=== PATIENT | male | born 1995 | race Caucasian/White ===

== ENCOUNTER → 2017-04-23 | Outpatient (CLI) | payer BC | LOC: FIMAGING 08:28 | DX: R10.9 Unspecified abdominal pain (principal) | CPT/HCPCS: 78264; A9541 ==

== ENCOUNTER 2017-05-08 19:49 | Observation (INO) | payer BC ==
--- NOTE | 2017-05-08 20:09 | EDPHY ---
H & P Time Seen by Provider: 05/08/17 19:59 HPI/ROS: CHIEF COMPLAINT: Vomiting, nausea HISTORY OF PRESENT ILLNESS: Patient is a 22-year-old male who presents emergency department not feeling well. Patient states that he was recently diagnosed with Sjogren's syndrome. He has been on Plaquenil for the past 3 weeks. He takes 200 mg twice daily. On he saw his physician and was increased to 400 mg twice daily. He has been on increased dosing for the past 2 days. Patient states that he has mild abdominal cramping. He has had numerous episodes of nonbloody nausea and vomiting. No diarrhea. No fever. Mild chills. No chest pain or shortness of breath. No dysuria frequency. Patient denies recent travel. No other new medications. REVIEW OF SYSTEMS: My complete review of systems is negative except as mentioned in the HPI. Past Medical/Surgical History: Includes Sjogren's syndrome, IBS Past surgical history: Tonsillectomy Social history: Patient does not smoke. Smoking Status: Never smoked Physical Exam: 36.5, 146/94, 125, 18, 98% on room air GENERAL: No acute distress, alert. HEENT: Eyes normal to inspection, normal pharynx, mildly dry mucous membranes. NECK: No thyromegaly, no lymphadenopathy, supple. RESPIRATORY: Clear to auscultation bilaterally, no rales, rhonchi or wheezing. CVS: Regular rate and rhythm, no rubs, murmurs, or gallops. ABDOMEN: Soft, nontender, nondistended, no organomegaly. BACK: Normal to inspection, no CVA tenderness. SKIN: Normal color, no rash, warm, dry. No pallor. EXTREMITIES: No pedal edema, no calf tenderness, no Homans sign or cords, no joint swelling. NEURO/PSYCH: Alert and oriented x3, normal mood and affect, normal motor sensory exam. No obvious cranial nerve deficit. Constitutional: Initial Vital Signs Temperature (C) 36.5 C 05/08/17 19:51 Heart Rate 125 H 05/08/17 19:51 Respiratory Rate 18 05/08/17 19:51 Blood Pressure 146/94 H 05/08/17 19:51 O2 Sat (%) 98 05/08/17 19:51 O2 Delivery Mode Room Air Allergies/Adverse Reactions: No Known Allergies Allergy (Unverified 05/08/17 19:56) Home Medications: Medication Instructions Recorded Hyoscyamine Sulfate 05/08/17 Ondansetron Odt [Zofran Odt 4 mg 4 mg PO Q4PRN PRN #7 tab 05/08/17 (*)] Plaquenil 200 mg (*) 05/08/17 Medical Decision Making ED Course/Re-evaluation: In the emergency department I discussed possible etiologies with the patient. I answered all of his questions. An IV was placed. Patient was given 2 L of normal saline for hydration. He is given Zofran 4 mg IV. He is given Toradol 30 mg IV for discomfort. The patient's mother requested a flu swab. I discussed this with the patient. The order was placed. Patient's CBC showed a mildly elevated white count. Mildly elevated hematocrit of 51. Chemistry panel is unremarkable. LFTs are normal. Lipase is normal. 2100: I rechecked the patient. He is feeling much better. Abdomen is soft, nontender nondistended. I discussed his laboratory results. I answered all her questions. Patient's mother spoke with his major gifts director Dr. Chávez. He states that he feels his symptoms are secondary to the Plaquenil. Often times patient's have a reaction to this medication per her conversation with him. Influenza negative Patient's vital signs improved. I discussed possible etiologies with the patient and this included Plaquenil. I also discussed other causes. I gave him warnings prior to leaving and reasons for return. He will return if he is worse. He was given a prescription of Zofran and take-home pack it of Zofran. Prior to discharge patient's heart rate bumped to 114. He had no new complaints. His abdominal exam was benign. Because of this the patient was given Normal saline. On recheck the patient's heart rate was 122. His temperature was 100 degrees. He was given acetaminophen 1 g orally. Patient was feeling nauseated. He is given Phenergan 12.5 mg IV. I discussed the case with Dr. Good from the hospitalist service. The patient will be admitted for further observation. Differential Diagnosis: My differential includes but is not limited to IBS, medication reaction, gastritis, viral illness, pancreatitis, cholecystitis, bowel obstruction - Data Points Laboratory Results: Laboratory Results 05/08/17 20:05 05/08/17 20:05 05/08/17 05/08/17 05/08/17 20:05 20:05 20:05 WBC RBC Hgb Hct MCV MCH MCHC RDW Plt Count MPV Neut % (Auto) Lymph % (Auto) Clark % (Auto) Eos % (Auto) Baso % (Auto) Nucleat RBC Rel Count Absolute Neuts (auto) Absolute Lymphs (auto) Absolute Monos (auto) Absolute Eos (auto) Absolute Basos (auto) Absolute Nucleated RBC Immature Gran % Immature Gran # PT 13.3 SEC SEC (12.0-15.0) INR 1.02 (0.83-1.16) APTT 25.7 SEC SEC (23.0-38.0) Sodium 144 mEq/L mEq/L (134-144) Potassium 3.9 mEq/L mEq/L (3.5-5.2) Chloride 102 mEq/L mEq/L (97-110) Carbon Dioxide 25 mEq/l mEq/l (22-31) Anion Gap 17 mEq/L H mEq/L (8-16) BUN 16 mg/dL mg/dL (7-23) Creatinine 1.1 mg/dL mg/dL (0.7-1.3) Estimated GFR > 60 Glucose 103 mg/dL H mg/dL (70-100) Calcium 10.2 mg/dL mg/dL (8.5-10.4) Total Bilirubin 1.2 mg/dL mg/dL (0.1-1.4) Conjugated Bilirubin 0.1 mg/dL mg/dL (0.0-0.5) Unconjugated Bilirubin 1.1 mg/dL mg/dL (0.0-1.1) AST 25 IU/L IU/L (17-59) ALT 40 IU/L IU/L (21-72) Alkaline Phosphatase 67 IU/L IU/L (38-126) Total Protein 7.8 g/dL g/dL (6.3-8.2) Albumin 5.4 g/dL H g/dL (3.5-5.0) Lipase 58 IU/L IU/L (23-300) Nasal Influenza A PCR NEGATIVE FOR FLU A (NEGATIVE) Nasal Influenza B PCR NEGATIVE FOR FLU B (NEGATIVE) 05/08/17 20:05 WBC 10.53 10^3/uL H 10^3/uL (3.80-9.50) RBC 5.98 10^6/uL 10^6/uL (4.40-6.38) Hgb 18.6 g/dL H g/dL (13.7-17.5) Hct 51.5 % H % (40.0-51.0) MCV 86.1 fL fL (81.5-99.8) MCH 31.1 pg pg (27.9-34.1) MCHC 36.1 g/dL g/dL (32.4-36.7) RDW 12.7 % % (11.5-15.2) Plt Count 180 10^3/uL 10^3/uL (150-400) MPV 10.2 fL fL (8.7-11.7) Neut % (Auto) 89.1 % H % (39.3-74.2) Lymph % (Auto) 4.7 % L % (15.0-45.0) Clark % (Auto) 4.7 % % (4.5-13.0) Eos % (Auto) 0.6 % % (0.6-7.6) Baso % (Auto) 0.4 % % (0.3-1.7) Nucleat RBC Rel Count 0.0 % % (0.0-0.2) Absolute Neuts (auto) 9.39 10^3/uL H 10^3/uL (1.70-6.50) Absolute Lymphs (auto) 0.49 10^3/uL L 10^3/uL (1.00-3.00) Absolute Monos (auto) 0.50 10^3/uL 10^3/uL (0.30-0.80) Absolute Eos (auto) 0.06 10^3/uL 10^3/uL (0.03-0.40) Absolute Basos (auto) 0.04 10^3/uL 10^3/uL (0.02-0.10) Absolute Nucleated RBC 0.00 10^3/uL 10^3/uL (0-0.01) Immature Gran % 0.5 % % (0.0-1.1) Immature Gran # 0.05 10^3/uL 10^3/uL (0.00-0.10) PT INR APTT Sodium Potassium Chloride Carbon Dioxide Anion Gap BUN Creatinine Estimated GFR Glucose Calcium Total Bilirubin Conjugated Bilirubin Unconjugated Bilirubin AST ALT Alkaline Phosphatase Total Protein Albumin Lipase Nasal Influenza A PCR Nasal Influenza B PCR Medications Given: Discontinued Medications Acetaminophen (Tylenol) 1,000 mg PO EDNOW ONE Stop: 05/08/17 22:01 Last Admin: 05/08/17 22:06 Dose: 1,000 mg Famotidine (Pepcid) 20 mg IVP EDNOW ONE Stop: 05/08/17 20:12 Last Admin: 05/08/17 20:16 Dose: 20 mg Sodium Chloride (Ns) 1,000 mls @ 0 mls/hr IV EDNOW ONE; Wide Open PRN Reason: Protocol Stop: 05/08/17 20:11 Last Admin: 05/08/17 20:16 Dose: 1,000 mls Sodium Chloride (Ns) 1,000 mls @ 0 mls/hr IV ONCE ONE PRN Reason: Wide Open Stop: 05/08/17 20:46 Last Admin: 05/08/17 20:47 Dose: 1,000 mls Sodium Chloride (Ns) 1,000 mls @ 0 mls/hr IV EDNOW ONE; Wide Open PRN Reason: Protocol Stop: 05/08/17 21:28 Last Admin: 05/08/17 21:30 Dose: 1,000 mls Ketorolac Tromethamine (Toradol) 30 mg IVP EDNOW ONE Stop: 05/08/17 20:11 Last Admin: 05/08/17 20:16 Dose: 30 mg Ondansetron HCl (Zofran) 4 mg IVP EDNOW ONE Stop: 05/08/17 20:11 Last Admin: 05/08/17 20:16 Dose: 4 mg Ondansetron HCl (Zofran Odt 4 Mg Prepack#2) 1 btl TAKEHOME EDNOW ONE Stop: 05/08/17 21:08 Last Admin: 05/08/17 21:31 Dose: 1 btl Promethazine HCl (Phenergan) 12.5 mg IVP ONCE ONE Stop: 05/08/17 22:09 Last Admin: 05/08/17 22:11 Dose: 12.5 mg Departure - Departure Disposition: [facility] Acute Clinical Impression: Vomiting Qualifiers: Vomiting type: unspecified Vomiting Intractability: non-intractable Nausea presence: with nausea Qualified Code(s): R11.2 - Nausea with vomiting, unspecified Condition: Good
[2017-05-08] MEDS ORDERED: ONDANSETRON 4 MG/2 ML VIAL IVP ONE (20:10)
[2017-05-08] MEDS ORDERED: NS 1,000 ML IV ONE ×3 (20:10→21:27)
[2017-05-08] MEDS ORDERED: KETOROLAC 30 MG/1 ML SDV IVP ONE (20:10)
[2017-05-08] MEDS ORDERED: FAMOTIDINE 20 MG/2 ML SDV IVP ONE (20:11)
[2017-05-08 20:17] LABS: % IMMATURE GRANULYOCYTES 0.5 % (0.0-1.1); ABSOLUTE IMMATURE GRANULOCYTES 0.05 10^3/uL (0.00-0.10); ADD DIFF? NO; ADD MORPH? NO; ADD SCAN? NO; ATYPICAL LYMPHOCYTE FLAG 0 (0-99); FRAGMENT RBC FLAG 0 (0-99); HEMATOCRIT 51.5 % (40.0-51.0); HEMOGLOBIN 18.6 g/dL (13.7-17.5); LEFT SHIFT FLG 0 (0-99); LIPEMIA HEMOLYSIS FLAG 90 (0-99); MEAN CELL HEMOGLOBIN 31.1 pg (27.9-34.1); MEAN CELL HEMOGLOBIN CONCENTR. 36.1 g/dL (32.4-36.7); MEAN CELL VOLUME 86.1 fL (81.5-99.8); MEAN PLATELET VOLUME 10.2 fL (8.7-11.7); PLATELET CLUMPS FLAG 10 (0-99); PLATELET COUNT 180 10^3/uL (150-400); RED BLOOD CELL COUNT 5.98 10^6/uL (4.40-6.38); RED CELL DISTRIBUTION WIDTH 12.7 % (11.5-15.2)
[2017-05-08 20:26] LABS: APTT 25.7 SEC (23.0-38.0); INR 1.02 (0.83-1.16); PROTIME(PATIENT) 13.3 SEC (12.0-15.0)
[2017-05-08 20:37] LABS: ALANINE AMINOTRANSFERASE 40 IU/L (21-72); ALBUMIN 5.4 g/dL (3.5-5.0); ALKALINE PHOSPHATASE 67 IU/L (38-126); ANION GAP 17 mEq/L (8-16); ASPARTATE AMINOTRANSFERASE 25 IU/L (17-59); BILIRUBIN,TOTAL 1.2 mg/dL (0.1-1.4); BILIRUBIN-CONJUGATED 0.1 mg/dL (0.0-0.5); BILIRUBIN-UNCONJUGATED 1.1 mg/dL (0.0-1.1); CALCIUM 10.2 mg/dL (8.5-10.4); CARBON DIOXIDE 25 mEq/l (22-31); CHLORIDE 102 mEq/L (97-110); CREATININE 1.1 mg/dL (0.7-1.3); GLOMERULAR FILTRATION RATE > 60; GLUCOSE 103 mg/dL (70-100); POTASSIUM 3.9 mEq/L (3.5-5.2); SODIUM 144 mEq/L (134-144); TOTAL PROTEIN 7.8 g/dL (6.3-8.2)
[2017-05-08] MEDS ORDERED: ONDANSETRON 4MG PREPACK#2 BTL TAKEHOME ONE (21:07)
[2017-05-08] MEDS ORDERED: ACETAMINOPHEN 500 MG TAB PO ONE (22:00)
[2017-05-08] MEDS ORDERED: PROMETHAZINE HCL 25 MG/ML INJ IVP ONE (22:08)
[2017-05-08] MEDS ORDERED: HYDROCODONE/APAP 5/325 TAB PO PRN (22:37)
[2017-05-08] MEDS ORDERED: PROMETHAZINE HCL 25 MG/ML INJ IVP PRN (22:37)
[2017-05-08] MEDS: NS 1,000 ML IV SCH (23:33)
[2017-05-08] MEDS: ONDANSETRON 4 MG/2 ML VIAL IVP PRN (23:33)
--- NOTE | 2017-05-09 00:09 | GHP ---
[f rep st] HISTORY AND PHYSICAL DATE OF ADMISSION: 05/08/2017 SOURCE: The patient provides history, appears reliable. His parents are at bedside and supplement history. CHIEF COMPLAINT: Nausea, vomiting, abdominal pain. HISTORY OF PRESENT ILLNESS: This is a very pleasant 22-year-old gentleman with a past medical history significant for irritable bowel syndrome and recently diagnosed Sjogren, started on Plaquenil, presents to the emergency department today with complaints of nausea and vomiting that started at approximately 2:00 p.m. The patient reports that he was otherwise feeling fairly well. He has no known sick contacts. He had an appetite until about 2:00 p.m., and then developed nausea, vomiting, and dry heaving. The patient has not been able to keep anything down. He denies any hematemesis. He did have an episode of diarrhea that was nonbloody. The patient states that his abdominal cramping was more severe than his normal irritable bowel symptoms. Cramping pain to the mid and lower abdomen diffusely. The patient recently had a dosing change in his Plaquenil from 200 twice daily to 400 twice daily. The patient's fibreglass laminator, Dr. Chávez was called and felt that his symptoms could be attributed to the dosage increase. He recommended withholding the medication at this time. During the patient's emergency department stay, he developed a fever of 100 with an increase in the patient's heart rate into the 120s. The patient reports some intermittent palpitations throughout the day, but no chest pain or shortness of breath. The patient denies any rhinorrhea, cough, sore throat, rashes, dysuria, or hematuria. He has had one episode of nonbloody diarrhea, as above. REVIEW OF SYSTEMS: GENERAL: Fevers in the emergency department. No chills. Overall, the patient has been having increased fatigue and dry mouth type symptoms for the past year. SKIN: The patient denies any rashes or sores. ENT : The patient reporting dry mouth. No sore throat. No rhinorrhea. EYES: The patient denies any acute changes in vision or ocular pain. CV: The patient reports intermittent palpitations. No chest pain. RESPIRATORY: The patient denies any shortness of breath or cough. GI: Symptoms as noted per HPI. : The patient denies any dysuria or hematuria. MUSCULOSKELETAL: The patient reports some diffuse myalgias that have since resolved. No joint pain. NEURO: The patient reports intermittent headache just today. Denies any numbness or tingling. PSYCH: The patient denies anxiety or depression. Remainder ROS negative except as noted below ALLERGIES: No known drug allergies. HOME MEDICATIONS: Plaquenil with recent increase from 200 twice daily to 400 mg p.o. twice daily, hyoscyamine, Zofran, vitamin D, FC-Cidal and Dysbiocide. PAST MEDICAL HISTORY: Significant for irritable bowel syndrome with intermittent abdominal cramping. The patient denies any predominance of diarrhea or constipation. Recently diagnosed Sjogren syndrome. PAST SURGICAL HISTORY: Significant for tonsillectomy, wisdom tooth removal, EGD and colonoscopy. FAMILY HISTORY: Significant for sarcoidosis in father. A paternal cousin with diabetes type 1. SOCIAL HISTORY: The patient denies any tobacco, drugs, or alcohol use. CODE STATUS: Full. PHYSICAL EXAMINATION: VITAL SIGNS: Upon arrival to the emergency department today, blood pressure 146/94, heart rate 125, respiratory rate 18, O2 saturation 98% in room air with a temperature 36.5. Vitals currently available : Blood pressure 130/73, heart rate is 120, respiratory rate 16, O2 saturation 97% on room air with a temperature 37.8. GENERAL: In no acute distress, pleasant young adult male who is lying quietly in bed. He does appear fatigued , acutely ill, but nontoxic. HEAD: Normocephalic, atraumatic. EYES: Extraocular muscles are intact. Pupils equal, round, reactive to light bilaterally and symmetric. Slightly sluggish to light. No scleral icterus or conjunctival injection. ENT: Mucous membranes appear moist. No oropharyngeal erythema or exudates. NECK: Supple. Trachea midline. CV: Tachycardic in the 120s, without any murmurs, rubs, or gallops appreciated. RESPIRATORY: Lungs clear to auscultation bilaterally. No wheezes, rales, or rhonchi appreciated. ABDOMEN: Positive bowel sounds, soft, nontender to palpation. No rebound, guarding, or masses appreciated. : No Victoria in place. No suprapubic tenderness to palpation. EXTREMITIES: No cyanosis, clubbing, or edema appreciated. MUSCULOSKELETAL: Patient able to sit up independently. Moves all extremities with grossly normal strength. NEURO: Cranial nerves grossly nonfocal. No facial drooping. Moves all extremities as above. PSYCH: Patient awake, alert, and oriented x4. Thought process, content and questions are all appropriate. He does appear a little fatigued, but cooperative. LABORATORY STUDIES: WBC is 10.53, H and H 18.6 and 51.5, MCV of 86.1, platelet count is 180, neutrophil percent is 89.1%. PT is 13.3, INR 1.02, PTT is 25.7. Sodium 144, potassium 3.9, chloride 102, CO2 of 25, anion gap 17, BUN 16, creatinine 1.1, GFR greater than 60, glucose 103, calcium 10.2. Total bilirubin 1.2, conjugated 0.1, unconjugated 1.1, ALT is 40, AST 25, alkaline phosphatase 67, total protein 7.8, albumin is 5.4, lipase 58. Flu A and B are both negative. ASSESSMENT AND PLAN: A pleasant 22-year-old gentleman with a history of irritable bowel syndrome, recently diagnosed Sjogren's, now presents with symptoms of nausea, vomiting, and fever. 1. Nausea and vomiting likely related to patient's Plaquenil versus viral syndrome. The patient did develop a fever, which could still be related to his Plaquenil. Discussed with the parents. Will continue with IV fluid hydration. He is status post 3 L in the emergency department. Heart rate remains in the 120s. At this time, after 3 L, the patient reports that he may now feel like he has to void, which he was not able to do previously. The patient's symptoms have been improved. He received two doses of Zofran and an additional dose of Phenergan, and now feeling a little sleepy, but reports that his nausea and vomiting are finally subsiding. Will encourage sips and advancement in diet as tolerated. 2. Tachycardia likely related to dehydration and recent fever. Will monitor the patient overnight on telemetry and continue with IV fluid hydration. The patient denies any chest pain and no additional risk factors for cardiovascular disease. 3. Sjogren. As above, holding Plaquenil. 4. Irritable bowel syndrome. The patient may resume his home medications and supplements once he is discharged and diet is advanced and tolerated. 5. Anion gap, mildly increased, likely related to the patient's current dehydration status. IV fluids, as above, and will plan to repeat in the morning a BMP. 6. Polycythemia likely related to some dehydration, but will repeat a CBC in the morning to verify. 7. Fluid, electrolyte, nutrition. Status post 3 L in the emergency department. Continue 150 mL of normal saline unless the patient is able to tolerate large volume p.o. hydration and improved frequency of voiding. Electrolyte replacement if needed in the morning. Nutrition: Diet regular, advance as tolerated. 8. Prophylaxis. SCDs. Holding anticoagulation as patient with low risk, but will place on SCDs when in bed. 9. Code status is full. DISPOSITION: The patient is admitted to observation on the medical floor at this time. Anticipate discharge in the morning once the patient is hydrated and his heart rate has decreased. Plan discussed with patient and family in detail, and they are agreeable to the plan. /[id number]/MODL MTDD
[2017-05-09] MEDS ORDERED: LORazepam 2 MG/ML INJ IVP PRN (00:10)
[2017-05-09] MEDS: ACETAMINOPHEN 325 MG TAB PO PRN ×2 (04:16→15:07)
[2017-05-09 05:09] LABS: % IMMATURE GRANULYOCYTES 0.4 % (0.0-1.1); ABSOLUTE IMMATURE GRANULOCYTES 0.02 10^3/uL (0.00-0.10); ADD DIFF? NO; ADD MORPH? NO; ADD SCAN? NO; ATYPICAL LYMPHOCYTE FLAG 0 (0-99); FRAGMENT RBC FLAG 0 (0-99); HEMATOCRIT 43.1 % (40.0-51.0); HEMOGLOBIN 15.2 g/dL (13.7-17.5); LEFT SHIFT FLG 0 (0-99); LIPEMIA HEMOLYSIS FLAG 90 (0-99); MEAN CELL HEMOGLOBIN 30.6 pg (27.9-34.1); MEAN CELL HEMOGLOBIN CONCENTR. 35.3 g/dL (32.4-36.7); MEAN CELL VOLUME 86.9 fL (81.5-99.8); MEAN PLATELET VOLUME 10.5 fL (8.7-11.7); PLATELET CLUMPS FLAG 0 (0-99); PLATELET COUNT 141 10^3/uL (150-400); RED BLOOD CELL COUNT 4.96 10^6/uL (4.40-6.38); RED CELL DISTRIBUTION WIDTH 12.7 % (11.5-15.2)
[2017-05-09 05:21] LABS: ANION GAP 12 mEq/L (8-16); CALCIUM 8.3 mg/dL (8.5-10.4); CARBON DIOXIDE 22 mEq/l (22-31); CHLORIDE 109 mEq/L (97-110); GLOMERULAR FILTRATION RATE > 60; GLUCOSE 98 mg/dL (70-100); SODIUM 143 mEq/L (134-144)
--- NOTE | 2017-05-09 09:08 | ASMTCMCOM ---
CM Note CM Note Notes: Chart reviewed admitted with abdominal pain. No needs identified at present. CM available should needs arise. Date Signed: 05/09/2017 09:07 AM Electronically Signed By:Zofia Schroeder RN
[2017-05-09] MEDS: NS 1,000 ML IV SCH (11:44)
[2017-05-09] MEDS ORDERED: HYOSCYAMINE SULFATE 0.125 MG TAB SL PRN (14:00)
--- NOTE | 2017-05-09 14:08 | HOSPPROG ---
Hospitalist Progress Note Assessment/Plan: 22 yo M with PMH of IBS, Sjogren's pw N/V # n/v: likely related to either increase in plaquenil versus viral gastroenteritis. Much improved however still having some nausea. Will monitor, if able to eat and sxs resolved will likely dc later today versus tomorrow. Abd exam benign, LFTs wnl. # Sjogren's: recently started on increased dose of plaquenil but possibly led to above, rheum doctor stating we should hold for now # tachycardia/fever: low grade temperature which could be more indicative of viral etiology, tachycardia improved though HR still slightly elevated, continue IVF for now # polycythemia/leukocytosis: resolved s/p IVF, suspect hemoconcentrated on arrival # IBS: continue home mgmt, had one loose stool but nothing more significant # observation status, suspect he will either be able to dc later today or in am Patient new to my care. Old records reviewed/summarized as above. Care plan reviewed with patients mom present at bedside. Subjective: no significant overnight events, patient notes feeling slightly better Objective: Vital Signs Temp Pulse Resp BP Pulse Ox 37.2 C 100 20 103/67 94 05/09/17 11:29 05/09/17 11:29 05/09/17 11:29 05/09/17 11:29 05/09/17 11:29 Laboratory Results 05/09/17 04:33 05/09/17 04:33 05/08/17 05/09/17 05/10/17 05:59 05:59 05:59 Intake Total 3100 Output Total 100 Balance 3000 PT 13.3 SEC (12.0-15.0) 05/08/17 20:05 INR 1.02 (0.83-1.16) 05/08/17 20:05 awake alert anicteric op clear rrr tachycardia cta b soft nt nd no cce warm dry well perfused oriented appropriate ICD10 Worksheet Patient Problems: Problems Problem Status Onset Vomiting Acute
[2017-05-09] MEDS ORDERED: CALCIUM CARBONATE 500 MG CHEWABLE TAB PO PRN (14:19)
[2017-05-09] MEDS: ONDANSETRON 4 MG/2 ML VIAL IVP PRN (14:27)
[2017-05-09] MEDS: MAG HYDROX/AL HYDROX/SIMETH 30 ML UDCUP PO PRN ×2 (14:40→20:15)
[2017-05-09] MEDS ORDERED: NS 1,000 ML IV ONE (15:00)
[2017-05-09 19:29] VITALS: BP 120/69; PULSE 78; RESP 16; TEMP 98.7; O2SAT 94
--- NOTE | 2017-05-09 21:07 | PDDCSUM ---
Discharge Summary Discharge Summary: DISCHARGE SUMMARY FOLLOW-UP ITEMS: Follow-up symptom management with primary care provider DATE OF ADMISSION: 05/08/2017 DATE OF DISCHARGE: 05/09/2017 DISCHARGE DIAGNOSES: 1. Acute nausea and vomiting 2. Chronic Sjogren's Syndrome 3. Chronic irritable bowel syndrome CONSULTATIONS: None PROCEDURES / IMAGING: None CHIEF COMPLAINT: Acute nausea and vomiting SUBJECTIVE: Patient is feeling well at time discharge, he is able to tolerate oral solids and liquids, his symptoms are managed with as needed Zofran, he is having regular bowel movement PHYSICAL EXAM ON DISCHARGE: Abdomen is soft nontender nondistended, bowel sounds are present, no masses are palpated, heart rhythm is regular, mildly tachycardic, but this decreases with calming the patient, oriented x3, no pain, heart rate 78, afebrile overnight, satting well on room air, systolic blood pressure 120 LABS ON DISCHARGE: White blood cell count 4600, hemoglobin 15.2, platelets [id number], potassium 4, creatinine 1.0, serum sodium 143, flu PCR negative HOSPITAL COURSE BY PROBLEM: The patient presented with acute nausea and vomiting, leading to dehydration and hemoconcentration with mild leukocytosis and polycythemia, secondary to hypovolemia. The patient received empiric IV fluids, supportive care, and his symptoms resolved. Is unclear whether his nausea and vomiting are secondary to irritable bowel syndrome symptoms, or a mild Plaquenil side effect. The patient 's Plaquenil was continued, he received supportive care, and he is feeling comfortable being discharged with Zofran supportively at this time. The patient is requesting discharge at this hour. He was continued on his home dosage of Levsin for his irritable bowel syndrome. DISCHARGE MEDICATIONS: Please see official discharge medication reconciliation sheet in chart , continue home medications with the addition of Zofran 4 mg as needed. DISCHARGE INSTRUCTIONS: Please follow up with primary care provider this week, to reassess symptoms.
--- NOTE | 2017-05-10 16:37 | ASDISCHSUM ---
Discharge Information Plan Status:Home with No Needs Medically Cleared to Leave:05/08/2017 Discharge Date:05/09/2017 09:18 PM D/C Disposition: ADT D/C Disposition:Home, Routine, Self-Care Projected Discharge Date:05/09/2017 12:00 AM Transportation at D/C: Discharge Delay Reason: Follow-Up Date:05/09/2017 12:00 AM Discharge Slot: Final Diagnosis: Placement Information Patient Contact Information Contact Name:ANCA Relationship:Mother Address:[address] Work Phone: City:[place] Alternate Phone: State/Zip Code:[place] [address] Email: Financial Information Financial Class:HMO and PPO Plans Primary Plan Desc: OUT OF STATE PPO Primary Plan Number:[id number] Secondary Plan Desc: Secondary Plan Number: Assessment Information LACE LACE Length of stay for Answers: Less than 1 day current admission Acuity / Level of Care Answers: Was the patient admitted to hospital via the emergency department? Yes: Emergency dept visits in Answers: 0 last 6 months Score: 3 Date Signed: 05/09/2017 09:02 AM Electronically Signed By:Zofia Schroeder RN [facility] CM Progress Note CM Note CM Note Notes: Chart reviewed admitted with abdominal pain. No needs identified at present. CM available should needs arise. Date Signed: 05/09/2017 09:07 AM Electronically Signed By:Zofia Schroeder RN Intervention Information
== END 2017-05-09 21:18 | disposition home or self-care (01) ==
LOC: F3E 23:06
PROVIDERS: ADMIT Family Medicine; ATTEND Internal Medicine
DX: R11.2 Nausea with vomiting, unspecified (principal); E86.0 Dehydration; M35.00 Sjogren syndrome, unspecified; K58.9 Irritable bowel syndrome, unspecified
CPT/HCPCS: G0378 ×2; 96374; J1885; J2060; J2405; J2550

== ENCOUNTER 2017-05-10 14:18 | Emergency (ER) | payer BC ==
[2017-05-10 14:51] VITALS: RESP 16
--- NOTE | 2017-05-10 15:02 | EDPHY ---
H & P Stated Complaint: D/C'd from [facility] last night;thinks he's still dehydrated Time Seen by Provider: 05/10/17 15:01 Source: Patient - Personal History Current Tetanus Diphtheria and Acellular Pertussis (TDAP): Yes - Medical/Surgical History Hx Asthma: No Hx Chronic Respiratory Disease: No Hx Diabetes: No Hx Cardiac Disease: No Hx Renal Disease: No Hx Cirrhosis: No Hx Alcoholism: No Hx HIV/AIDS: No Hx Splenectomy or Spleen Trauma: No Other PMH: sjogrens, tonsillectomy - Social History Smoking Status: Never smoked Constitutional: Initial Vital Signs Temperature (C) 37.1 C 05/10/17 14:22 Heart Rate 108 H 05/10/17 14:22 Respiratory Rate 18 05/10/17 14:22 Blood Pressure 116/86 H 05/10/17 14:22 O2 Sat (%) 93 05/10/17 14:22 O2 Delivery Mode Room Air Allergies/Adverse Reactions: No Known Allergies Allergy (Verified 05/10/17 14:25) Home Medications: Medication Instructions Recorded Hydroxychloroquine Sulfate 200 mg PO BID 05/08/17 [Plaquenil 200 mg (*)] Hyoscyamine Sulfate [Levsin, 0.125 mg SL Q4-6PRN PRN 05/08/17 Hyomax-Sl 0.125 mg (*)] Acetaminophen [Tylenol 325mg (*)] 650 mg PO Q4HRS PRN tab 05/09/17 Herbals/Supplements -Info Only 1 ea PO DAILY 05/09/17 Ondansetron Odt [Zofran Odt 4 mg 4 mg PO Q4 PRN #40 tab 05/09/17 (*)] Immodium 05/10/17 Ondansetron Odt [Zofran Odt 4 mg 4 mg PO Q4 PRN #10 tab 05/10/17 (RX)] Medical Decision Making ED Course/Re-evaluation: CHIEF COMPLAINT: Nausea, diarrhea, abdominal discomfort. HISTORY OF PRESENT ILLNESS: The patient is a 22-year-old male presenting nausea , abdominal burning, and diarrhea. The patient was diagnosed with Sjogren last month. He increased his dose to Plaquenil on Wednesday (3 days ago) and after developed nausea and vomiting. He was hospitalized with severe dehydration and discharged home yesterday. This morning his symptoms of nausea, abdominal burning, and diarrhea returned. The patient states he does not feel well and believes he is dehydrated. He is able to keep down fluids and has not vomited today. REVIEW OF SYSTEMS: A 10 point review of systems was performed and is negative with the exception of the elements mentioned in the history of present illness. PHYSICAL EXAM: HR, BP, O2 Sat, RR. Temp noted General Appearance: Alert, well hydrated, appropriate, and non-toxic appearing. Eyes: Pupils equal, round, reactive to light and accommodation, EOMI, no trauma , no injection. Ears: Clear bilaterally, no perforation, normal landmarks Nose: Atraumatic, no rhinorrhea, clear. Throat: There is no erythema or exudates, no lesions, normal tonsils, mucus membranes moist. Neck: Supple, 2+ carotid upstroke, nontender, no lymphadenopathy. Respiratory: No retractions, no distress, no wheezes, and no accessory muscle use. Lungs are clear to auscultation bilaterally. Cardiovascular: Regular rate and rhythm, no murmurs, rubs, or gallops. Bilateral carotid, radial, dorsalis pedis, and posterior tibial pulses intact. Good capillary refill all extremities. Gastrointestinal: Abdomen is soft, nontender, non-distended, no masses, no rebound, no guarding, no peritoneal signs. Musculoskeletal: Normal active ROM of all extremities, atraumatic. Neurological: Alert, appropriate, and interactive. The patient has normal DTRs and non-focal cranial nerves, motor, sensory, and cerebellar exam. Skin: No rashes, good turgor, no nodules on palpation. Past medical history: Sjogren's syndrome. Past surgical history: Tonsillectomy. Family history: Noncontributory. Social history: Parents at bedside. DIFFERENTIAL DIAGNOSIS: The differential diagnosis for the patient's nausea and and abdominal discomfort included but was not limited to dehydration, gastroenteritis, gastritis, appendicitis, and medication side effect. MEDICAL DECISION MAKING: Patient with newly diagnosed Sjogren's syndrome presents with nausea, diarrhea, and abdominal discomfort, no episodes of emesis. The patient has moist mucous membranes and no abdominal discomfort on examination. He is able to keep down fluids. IV was established, the patient received fluids, Famotidine, and Zofran IV. 4:00 p.m.: The patient states he is unable to swallow fluids, though he is able to drink Mimi Marah. I recommend the patient increase oral fluids at home. I will discharge the patient home with Zofran. 4:20 p.m.: I re-examined the patient. He continues to have abdominal burning. I discussed admission with the patient and his parents. The patient would like to wait to see if he feels better at this time. I will re-examine him. 5:00 p.m.: The patient is feeling better and would like to go home. - Data Points Medications Given: Discontinued Medications Sodium Chloride (Ns) 1,000 mls @ 0 mls/hr IV EDNOW ONE; Wide Open PRN Reason: Protocol Stop: 05/10/17 15:13 Last Admin: 05/10/17 15:26 Dose: 1,000 mls Famotidine/Sodium Chloride (Pepcid 20 Mg (Premix)) 50 mls @ 200 mls/hr IV EDNOW ONE Stop: 05/10/17 15:26 Last Admin: 05/10/17 15:28 Dose: 50 mls Ondansetron HCl (Zofran) 4 mg IVP EDNOW ONE Stop: 05/10/17 15:13 Last Admin: 05/10/17 15:27 Dose: Not Given Departure - Departure Disposition: Home, Routine, Self-Care Clinical Impression: Nausea Diarrhea Qualifiers: Diarrhea type: unspecified type Qualified Code(s): R19.7 - Diarrhea, unspecified Condition: Good Instructions: Acute Nausea and Vomiting (ED), Acute Diarrhea (ED) Additional Instructions: Drink plenty of fluids including drinks with electrolytes such as Gatorade. Take Zofran as directed for recurrent nausea and vomiting. Follow up with your primary care physician as needed. Return to the Emergency Department with new or worsening symptoms. Referrals: Betsy Carmen MD [Primary Care Provider] - As per Instructions Prescriptions: Ondansetron Odt [Zofran Odt 4 mg (RX)] 4 mg PO Q4 PRN #10 tab PRN Reason: Nausea/Vomiting, Use 1st Report Scribed for: Adair Ross Report Scribed by: Gloria Villatoro Date of Report: 05/10/17 Time of Report: 15:31
[2017-05-10] MEDS ORDERED: FAMOTIDINE 20 MG/NACL 50 ML IV ONE (15:12)
[2017-05-10] MEDS ORDERED: ONDANSETRON 4 MG/2 ML VIAL IVP ONE (15:12)
[2017-05-10] MEDS ORDERED: NS 1,000 ML IV ONE (15:12)
[2017-05-10 17:25] VITALS: BP 125/76; PULSE 80; TEMP 97.2; O2SAT 98
== END 2017-05-10 17:25 | disposition home or self-care (01) ==
DX: R19.7 Diarrhea, unspecified (principal); R11.0 Nausea; E86.9 Volume depletion, unspecified
CPT/HCPCS: 82947-QW; 96365; J2405

== ENCOUNTER 2018-06-30 04:02 | Emergency (ER) | payer BC ==
--- NOTE | 2018-06-30 05:10 | EDPHY ---
H & P Stated Complaint: lightheaded, sob Time Seen by Provider: 06/30/18 04:37 HPI/ROS: HPI The patient presents with lightheadedness which is been present for the last 4- 5 weeks though is getting progressively worse and has been particularly severe over the last 1 day. The patient has a history of likely psoriatic arthritis and Sjogren's disease for which he receives Remicade injections over the last 7 months. Today he had a Remicade injection in [place], and during the injection he felt more lightheaded than usual. Like he might pass out. He also noticed his breathing become shallow. He received an IV dose of steroids because of this. He went from the infusion center to the Emergency Department where he was evaluated with chest x-ray, EKG, troponin, CBC, chemistry, thyroid panel which were all normal. He felt fine and was discharged home. He has had ongoing symptoms throughout the night and has been unable to sleep well. He says he feels lightheaded and short of breath mostly when he is sitting or lying flat. His symptoms are improved when he walks around. He has been able to eat and drink without difficulty. He does not have any chest pain, nausea or vomiting. He does not have a headache. His casino banker thought that he could be developing POTS. His dose of prednisone was increased from 8 mg daily to 12 mg daily. He is also taking Prolia REVIEW OF SYSTEMS 10 systems were reviewed and negative with the exception of the elements mentioned in the history of present illness. PMHx: Rheumatologic disease, likely psoriatic arthritis Soc Hx: Lives in [place], here with his mom PHYSICAL General Appearance: Alert, no distress Eyes: Pupils equal and round no pallor or injection ENT, Mouth: Mucous membranes dry Respiratory: There are no retractions, lungs are clear to auscultation Cardiovascular: Regular rate and rhythm Gastrointestinal: Abdomen is soft and non-tender, no masses, bowel sounds normal Neurological: A&O, cranial nerves 2-12 intact, 5/5 strength in upper and lower extremities Skin: Warm and dry, no rashes Musculoskeletal: Neck is supple non tender Extremities: symmetrical, full range of motion Psychiatric: Patient is oriented X 3, there is no agitation Source: Patient, Family, Old records Exam Limitations: No limitations - Personal History Current Tetanus Diphtheria and Acellular Pertussis (TDAP): Yes - Medical/Surgical History Hx Asthma: No Hx Chronic Respiratory Disease: No Hx Diabetes: No Hx Cardiac Disease: No Hx Renal Disease: No Hx Cirrhosis: No Hx Alcoholism: No Hx HIV/AIDS: No Hx Splenectomy or Spleen Trauma: No Other PMH: sjogrens, tonsillectomy - Social History Smoking Status: Never smoked Constitutional: Initial Vital Signs Temperature (C) 37.3 C 06/30/18 04:11 Heart Rate 66 06/30/18 04:11 Respiratory Rate 20 06/30/18 04:11 Blood Pressure 144/79 H 06/30/18 04:11 O2 Sat (%) 95 06/30/18 04:11 Allergies/Adverse Reactions: rifaximin [From Xifaxan] Allergy (Verified 06/30/18 04:09) Home Medications: Medication Instructions Recorded Hydroxychloroquine Sulfate 200 mg PO BID 05/08/17 [Plaquenil 200 mg (*)] Hyoscyamine Sulfate [Levsin, 0.125 mg SL Q4-6PRN PRN 05/08/17 Hyomax-Sl 0.125 mg (*)] Acetaminophen [Tylenol 325mg (*)] 650 mg PO Q4HRS PRN tab 05/09/17 Herbals/Supplements -Info Only 1 ea PO DAILY 05/09/17 Ondansetron Odt [Zofran Odt 4 mg 4 mg PO Q4 PRN #40 tab 05/09/17 (*)] Immodium 05/10/17 Ondansetron Odt [Zofran Odt 4 mg 4 mg PO Q4 PRN #10 tab 05/10/17 (RX)] Prednisone 06/30/18 Remicade Inj 100 mg (*) 06/30/18 Medical Decision Making - Diagnostics EKG Interpretation: EKG: Complete interpretation has been separately recorded in the [facility] archive. Summary impression: Normal sinus rhythm Differential Diagnosis: This is a 23-year-old man with rheumatologic disease, currently taking Remicade and prednisone who presents with progressive lightheadedness over the last several weeks, worse over the last few days and much worse overnight tonight, making it difficult for him to sleep. His symptoms are worse while lying down an are accompanied by shortness of breath which he describes as shallow breathing. He denies any palpitations, chest pain. He has not had any loss of consciousness. Here, his mucous membranes are dry, otherwise he has a normal physical exam and normal vital signs. His EKG was obtained and was normal. Patient had orthostatics performed which demonstrated no orthostasis. He was placed on the cardiac technologist and observed for about an hour. He had no events on telemetry and no a arrhythmias. He still has ongoing symptoms though these have mostly improved. We plan to discharge him with Cardiology follow-up as an outpatient. I feel he is stable to return home though the cause of his lightheadedness is not entirely clear at this point. I explained to his mother that he may need neurology follow-up as well. Differential diagnosis includes arrhythmia, PACs, orthostasis related to dehydration or POTS. Departure - Departure Disposition: Home, Routine, Self-Care Clinical Impression: Lightheadedness, Shortness of breath Condition: Good Instructions: Lightheadedness (ED) Additional Instructions: Please make sure to drink plenty of fluids throughout the day. I recommend you follow up with the work from home listed below for further testing is needed. Referrals: Betsy Carmen MD [Primary Care Provider] - As per Instructions Cyrus Coto MD [Medical Doctor] - As per Instructions
[2018-06-30 06:26] VITALS: BP 125/78
--- NOTE | 2018-07-01 05:30 | CPEKG ---
Test Reason : OPEN Blood Pressure : / mmHG Vent. Rate : 067 BPM Atrial Rate : 067 BPM P-R Int : 142 ms QRS Dur : 086 ms QT Int : 390 ms P-R-T Axes : 018 075 040 degrees QTc Int : 412 ms Sinus rhythm Confirmed by Sugey Gordon ([id number]) on 07/01/2018 5:29:38 AM Referred By: Confirmed By:Sugey Gordon
== END 2018-06-30 06:26 | disposition home or self-care (01) ==
DX: R42 Dizziness and giddiness (principal); R06.02 Shortness of breath; Z79.899 Other long term (current) drug therapy